=== PATIENT | female | born 1995 | race Caucasian/White ===

== ENCOUNTER 2016-10-20 11:09 | Outpatient (RCR) | payer BC | END 2016-10-21 | LOC: M PT 11:09 | PROVIDERS: ATTEND Physician Assistant Surgical | DX: Z51.89 Encounter for other specified aftercare (principal); M40.10 Other secondary kyphosis, site unspecified ==

== ENCOUNTER 2016-10-29 09:57 | Outpatient (RCR) | payer BC | END 2016-11-20 | LOC: M PT 09:57 | PROVIDERS: ATTEND Physician Assistant Surgical | DX: Z51.89 Encounter for other specified aftercare (principal); M40.10 Other secondary kyphosis, site unspecified ==

== ENCOUNTER → 2018-04-26 | Outpatient (CLI) | payer BC | LOC: M SMT 13:36 | DX: S60.221A Contusion of right hand, initial encounter (principal); X58.XXXA Exposure to other specified factors, initial encounter; Y92.9 Unspecified place or not applicable | CPT/HCPCS: 73130 ==

== ENCOUNTER → 2020-06-29 | Outpatient (REF) | payer BC | LOC: M WUC 18:12 | PROVIDERS: ATTEND Physician Assistant Medical | DX: J02.9 Acute pharyngitis, unspecified (principal) ==

== ENCOUNTER → 2021-03-05 | Outpatient (CLI) | payer BC ==
[2021-03-05 10:39] LABS: BASO # 0.1 10^3/uL (0.0-0.2); BASO % 0.8 % (0.0-1.0); EOS # 0.2 10^3/uL (0.0-0.5); EOS % 2.1 % (0.0-3.0); HEMATOCRIT 41.8 % (36.0-47.0); HEMOGLOBIN 13.3 g/dl (12.0-15.5); LYMPH # 1.6 10^3/uL (1.5-5.0); LYMPH % 21.7 % (24.0-44.0); MEAN CORPUSCULAR HEMOGLOBIN 26.2 pg (27.0-33.0); MEAN CORPUSCULAR HGB CONC 31.8 g/dl (32.0-36.5); MEAN CORPUSCULAR VOLUME 82.4 fl (80.0-96.0); MONO # 0.5 10^3/uL (0.0-0.8); MONO % 7.1 % (2.0-8.0); NEUTROPHILS # 4.9 10^3/uL (1.5-8.5); NEUTROPHILS % 67.9 % (36.0-66.0); PLATELET COUNT, AUTOMATED 337 10^3/uL (150-450); RED BLOOD COUNT 5.07 10^6/uL (4.00-5.40); WHITE BLOOD COUNT 7.3 10^3/uL (4.0-10.0)
[2021-03-05 10:54] LABS: ALBUMIN 3.7 GM/DL (3.2-5.2); ALT/SGPT 16 U/L (12-78); BILIRUBIN,TOTAL 0.3 MG/DL (0.2-1.0); BLOOD UREA NITROGEN 14 MG/DL (7-18); CALCIUM LEVEL 8.8 MG/DL (8.5-10.1); CARBON DIOXIDE LEVEL 27 MEQ/L (21-32); CHLORIDE LEVEL 110 MEQ/L (98-107); CREATININE FOR GFR 0.64 MG/DL (0.55-1.30); FERRITIN 16 NG/ML (8-252); FREE T4 1.11 NG/DL (0.76-1.46); GLOMERULAR FILTRATION RATE > 60.0 (>60); GLUCOSE, FASTING 83 MG/DL (70-100); POTASSIUM SERUM 4.1 MEQ/L (3.5-5.1); SODIUM LEVEL 142 MEQ/L (136-145); THYROID STIMULATING HORMONE 0.984 uIU/ML (0.358-3.740); TOTAL PROTEIN 7.4 GM/DL (6.4-8.2)
== END ==
LOC: M PLALAB 08:24
PROVIDERS: ATTEND Family Medicine
DX: F41.8 Other specified anxiety disorders (principal); R53.82 Chronic fatigue, unspecified; G44.219 Episodic tension-type headache, not intractable

== ENCOUNTER → 2021-04-03 | Outpatient (CLI) | payer BC, OTHER ==
--- NOTE | 2021-04-04 08:30 | REPVR ---
PROCEDURE INFORMATION: Exam: MR Head Without Contrast Exam date and time: 04/03/2021 4:08 PM Age: 25 years old Clinical indication: Pain; Headache; Additional info: Headaches TECHNIQUE: Imaging protocol: MR of the head without contrast. COMPARISON: No relevant prior studies available. FINDINGS: Brain: There are several adjacent nonspecific small T2 and FLAIR hyperintense areas left superior frontal white matter. Posterior area appears linear and therefore this could also be perivascular space. No abnormal areas of signal intensity are seen. Diffusion images are normal. No evidence of acute infarction. No other evidence of acute intracranial hemorrhage. No extra-axial fluid collections. Ventricles and cerebrospinal fluid spaces are normal in size and configuration for the patient's age. There is no evidence of mass-effect or midline shift. Flow voids of the [place] and major cerebral vascular structures appear intact. Craniocervical junction appears unremarkable, with normal position of cerebellar tonsils and no evidence of Chiari I malformation. Cerebral ventricles: Normal. No ventriculomegaly. Bones/joints: Unremarkable as visualized. Paranasal sinuses: Normal as visualized. No acute sinusitis. Mastoid air cells: No significant mastoid effusion. Orbital cavity: Unremarkable. Soft tissues: Unremarkable as visualized. IMPRESSION: Few left frontal white matter nonspecific lesions versus perivascular spaces. Otherwise unremarkable. No acute infarct, acute or chronic hemorrhage, or evidence of mass lesion. Electronically signed by: Janet Mendiola On 04/04/2021 08:29:47 AM
== END ==
LOC: M PLAIMG 15:39
PROVIDERS: ATTEND Family Medicine
DX: G44.52 New daily persistent headache (NDPH) (principal)

== ENCOUNTER → 2023-06-16 | Outpatient (CLI) | payer BC, OTHER ==
[2023-06-16 16:07] LABS: BASO % 0.6 % (0.0-1.0); EOS # 0.1 10^3/uL (0.0-0.5); EOS % 1.6 % (0.0-3.0); HEMATOCRIT 39.2 % (36.0-47.0); HEMOGLOBIN 12.4 g/dl (12.0-15.5); LYMPH # 1.4 10^3/uL (1.5-5.0); LYMPH % 19.8 % (24.0-44.0); MEAN CORPUSCULAR HEMOGLOBIN 25.3 pg (27.0-33.0); MEAN CORPUSCULAR HGB CONC 31.6 g/dl (32.0-36.5); MONO # 0.7 10^3/uL (0.0-0.8); MONO % 9.5 % (2.0-8.0); NEUTROPHILS # 4.7 10^3/uL (1.5-8.5); NEUTROPHILS % 68.2 % (36.0-66.0); PLATELET COUNT, AUTOMATED 357 10^3/uL (150-450); WHITE BLOOD COUNT 6.9 10^3/uL (4.0-10.0)
[2023-06-16 16:15] LABS: TOTAL IRON BINDING CAPACITY 340 UG/DL (250-425)
[2023-06-16 16:16] LABS: ALBUMIN 3.8 G/DL (3.2-5.2); ALKALINE PHOSPHATASE 50 U/L (46-116); ALT/SGPT 14 U/L (7.0-40); AST/SGOT 9 U/L (<34); BILIRUBIN,TOTAL 0.5 MG/DL (0.3-1.2); BLOOD UREA NITROGEN 11 MG/DL (9-23); CALCIUM LEVEL 9.3 MG/DL (8.5-10.1); CARBON DIOXIDE LEVEL 26 MMOL/L (20-31); CHLORIDE LEVEL 106 MMOL/L (98-107); CHOLESTEROL LEVEL 147 MG/DL (<200); CHOLESTEROL RISK RATIO 2.45 (<5); CREATININE FOR GFR 0.63 MG/DL (0.55-1.30); FREE T4 1.24 NG/DL (0.89-1.76); GLOMERULAR FILTRATION RATE > 60.0 (>60); GLUCOSE, FASTING 86 MG/DL (60-100); HDL CHOLESTEROL 59.9 MG/DL (>40); IRON (FE) 65 UG/DL (50-170); LDL CHOLESTEROL 72.9 MG/DL (<100); NON-HDL-C 87.1 MG/DL; PERCENT SATURATION 19.1 % (13.2-45.0); POTASSIUM SERUM 4.1 MMOL/L (3.5-5.1); SODIUM LEVEL 137 MMOL/L (136-145); TOTAL PROTEIN 7.1 G/DL (5.7-8.2); TRIGLYCERIDES LEVEL 71 MG/DL (<150); VITAMIN B12 LEVEL 391 PG/ML (211-911)
[2023-06-16 16:17] LABS: FERRITIN 15.5 NG/ML (7.3-270.7); THYROID STIMULATING HORMONE 1.291 uIU/ML (0.55-4.78)
[2023-06-16 16:18] LABS: TOTAL 25(OH) VITAMIN D 15.8 NG/ML (20.0-100.0)
== END ==
LOC: M PLALAB 11:17
PROVIDERS: ATTEND Physician Assistant
DX: N92.0 Excessive and frequent menstruation with regular cycle (principal); R53.82 Chronic fatigue, unspecified; Z13.220 Encounter for screening for lipoid disorders

== ENCOUNTER → 2023-06-16 | Outpatient (CLI) | payer BC, OTHER | LOC: M PLAIMG 11:34 | PROVIDERS: ATTEND Physician Assistant | DX: M23.91 Unspecified internal derangement of right knee (principal); M25.461 Effusion, right knee; R93.6 Abnormal findings on diagnostic imaging of limbs ==

== ENCOUNTER → 2023-11-04 | Outpatient (CLI) | payer BC | LOC: M WHC 10-27 07:36 | PROVIDERS: ATTEND Obstetrics & Gynecology | DX: N93.9 Abnormal uterine and vaginal bleeding, unspecified (principal) ==

== ENCOUNTER 2024-03-08 11:55 | Day surgery (SDC) | payer BC ==
[~2024-03-08] VITALS: Ht 157.5 cm; Wt 75.5 kg
[~2024-03-08 11:55] MED LIST: ACETAMINOPHEN 1000MG 100ML IV BAG As Ordered ONE; KETAMINE HCL 200MG/20ML VIAL As Ordered ONE; KETOROLAC 60MG 2ML VIAL As Ordered ONE; LIDOCAINE 2% 100MG/5ML SDV (FOR ANES.) As Ordered ONE; MIDAZOLAM INJ 2MG/2ML VIAL As Ordered ONE; ONDANSETRON 4MG 2ML VIAL As Ordered ONE; ROCURONIUM BROMIDE 50MG/5ML VIAL As Ordered ONE; SUGAMMADEX SODIUM 500 MG/5 ML VIAL (BRIDION) As Ordered ONE; fentaNYL 100 MCG/2 ML INJECTION As Ordered ONE; propofoL 200 MG/20 ML VIAL As Ordered ONE
[2024-03-08] MEDS ORDERED: LR 1,000 ML IV SCH (12:20)
[2024-03-08 12:34] LABS: HEMATOCRIT 39.7 % (36.0-47.0); HEMOGLOBIN 12.8 g/dl (12.0-15.5); MEAN CORPUSCULAR HEMOGLOBIN 25.6 pg (27.0-33.0); MEAN CORPUSCULAR HGB CONC 32.2 g/dl (32.0-36.5); MEAN CORPUSCULAR VOLUME 79.4 fl (80.0-96.0); PLATELET COUNT, AUTOMATED 349 10^3/uL (150-450); WHITE BLOOD COUNT 6.5 10^3/uL (4.0-10.0)
[2024-03-08] MEDS: ceFAZolin SOD 2 GM in IV 1 EA IV ONE (12:55)
[2024-03-08] MEDS: METHYLENE BLUE 0.5% (5MG/ML) 10 ML AMP (PROVAYBLUE) As Ordered ONE (13:20)
[2024-03-08] MEDS ORDERED: METHYLENE BLUE 0.5% (5MG/ML) 10 ML AMP (PROVAYBLUE) ONE (14:00)
[2024-03-08] MEDS ORDERED: HYDROmorphone HCL 2MG/ML 1ML VIAL As Ordered ONE (14:11)
[2024-03-08] MEDS ORDERED: fentaNYL 100 MCG/2 ML INJECTION IV PRN (14:40)
[2024-03-08] MEDS: LR 1,000 ML IV SCH ×2 (14:40→16:44)
[2024-03-08] MEDS ORDERED: HYDROMORPHONE HCL 0.5 MG/ 0.5 ML SYRINGE IV PRN (14:40)
[2024-03-08] MEDS ORDERED: PERCOCET 5MG/325MG TAB PO PRN ×2 (14:50)
[2024-03-08] MEDS ORDERED: MORPHINE 4 MG/ML 1ML VIAL IV PRN (14:50)
[2024-03-08] MEDS ORDERED: ONDANSETRON 4MG 2ML VIAL IV PRN (14:50)
[2024-03-08] MEDS ORDERED: COLA100C5 PO (14:51)
[2024-03-08] MEDS ORDERED: IBUP80TA PO (14:51)
[2024-03-08] MEDS ORDERED: PERCOCET PO (14:51)
[2024-03-08] MEDS: ONDANSETRON 4MG 2ML VIAL IV PRN (15:16)
[2024-03-08] MEDS: oxyCODONE 5MG TAB PO PRN (15:16)
[2024-03-08 15:44] VITALS: BP 117/66; TEMP 98.7; O2SAT 99
[2024-03-08 16:14] VITALS: BP 118/69; TEMP 98.1; O2SAT 100
[2024-03-08 16:44] VITALS: BP 128/76; TEMP 98.9; O2SAT 99
[2024-03-08 17:44] VITALS: BP 131/79; TEMP 97.3; O2SAT 98
[2024-03-08 18:44] VITALS: TEMP 97.9; O2SAT 100
[2024-03-08 19:44] VITALS: BP 127/76; TEMP 98.2; O2SAT 98
[2024-03-08] MEDS ORDERED: KETOROLAC 30 MG/ML 1ML VIAL IV SCH (20:00)
[2024-03-08] MEDS ORDERED: DOCUSATE SODIUM 100MG CAPSULE PO SCH (21:00)
[2024-03-09] MEDS ORDERED: IBUPROFEN 800 MG TAB PO SCH (16:00)
== END 2024-03-08 21:00 | disposition home or self-care (01) ==
LOC: M SDC 11:55 → M PED 16:18 → M SDC 21:00
PROVIDERS: ATTEND Obstetrics & Gynecology
DX: D25.9 Leiomyoma of uterus, unspecified (principal); G43.909 Migraine, unspecified, not intractable, without status migrainosus; J45.909 Unspecified asthma, uncomplicated
CPT/HCPCS: 36415; 58571; 81025; 85027; 86850; 86900; 86901; 88307; J0131; J0665; J0690; J1100; J1171; J1885; J2250; J2405; J3010; Q9968; S2900